=== PATIENT | female | born 1995 | race American Indian/Alaskan Native ===

== ENCOUNTER 2017-10-02 22:59 | Emergency (ER) | payer OTHER ==
[2017-10-02] MEDS ORDERED: TYLENOL ONE (23:39)
[2017-10-02] MEDS ORDERED: TYLENOL PO ONE (23:40)
[2017-10-03 01:10] LABS: Bacteria,Urine 1+ /HPF (Negative); Bilirubin,Urine NEG (Negative); Blood,Urine NEG (Negative); Color,Urine Yellow (Yellow); Hyaline Casts,Urine 13 /LPF; Mucus,Urine 2+ /HPF; Protein,Urine <15 mg/dL mg/dL (Negative)
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
[2017-10-03 06:54] VITALS: BP 130/76
== END 2017-10-03 04:46 | disposition home or self-care (01) ==
LOC: ED 22:59
DX: S63.601A Unspecified sprain of right thumb, initial encounter (principal); S63.602A Unspecified sprain of left thumb, initial encounter; M25.531 Pain in right wrist; M25.562 Pain in left knee; V49.9XXA Car occupant (driver) (passenger) injured in unspecified traffic accident, initial encounter; Y93.89 Activity, other specified; Y92.488 Other paved roadways as the place of occurrence of the external cause; Y99.8 Other external cause status
CPT/HCPCS: 81001; 99284